=== PATIENT | female | born 1985 | race African-American/Black ===

== ENCOUNTER 2022-08-08 17:46 | Emergency (ER) | payer MEDICAID ==
[~2022-08-08] VITALS: Ht 165.1 cm; Wt 59.0 kg
[2022-08-08 17:47] VITALS: BP 137/74
[2022-08-08 19:54] LABS: BASOPHILS % 1.6 % (0.0-2.0); EOSINOPHILS % 4.1 % (0.0-5.0); HEMATOCRIT. 37.9 % (36.0-48.0); HEMOGLOBIN. 12.6 g/dL (12.0-16.0); LYMPHOCYTES % 37.5 % (20.0-50.0); MEAN CORPUSCULAR HEMOGLOBIN 26.5 pg (28.0-32.0); MEAN CORPUSCULAR VOLUME 79.8 fL (81.0-99.0); MEAN PLATELET VOLUME 8.1 fl (7.4-10.4); MONOCYTES % 11.7 % (2.0-8.0); NEUTROPHILS % 45.1 % (40.0-76.0); PLATELET 416 x1000/uL (130-400); RED BLOOD CELL COUNT 4.74 mill/uL (4.2-5.4); RED CELL DISTRIBUTION WIDTH 17.1 % (11.6-14.6)
[2022-08-08 20:09] LABS: CHLORIDE 108 mEq/L (98-107)
[2022-08-08 20:18] LABS: B-HCG QUANTITATIVE < 1 mIU/mL (<3)
== END 2022-08-08 21:34 | disposition home or self-care (01) ==
LOC: ER 17:46
DX: N93.8 Other specified abnormal uterine and vaginal bleeding (principal); F41.9 Anxiety disorder, unspecified
CPT/HCPCS: 36415; 80053; 81025; 84702; 85025; 86850; 86900; 86901; 99283; Z7610

== ENCOUNTER 2022-10-27 05:40 | Emergency (ER) | payer MEDICAID ==
[~2022-10-27] VITALS: Ht 167.6 cm; Wt 63.0 kg
[2022-10-27 05:43] VITALS: BP 140/72
== END 2022-10-27 06:05 | disposition home or self-care (01) ==
LOC: ER 05:40
DX: Z00.00 Encounter for general adult medical examination without abnormal findings (principal)
CPT/HCPCS: 99283

== ENCOUNTER 2022-12-30 07:52 | Emergency (ER) | payer MEDICAID ==
[~2022-12-30] VITALS: Ht 167.6 cm; Wt 59.0 kg
[2022-12-30 07:57] VITALS: BP 132/85; PULSE 88; RESP 16; TEMP 98.7; O2SAT 100
== END 2022-12-30 09:54 | disposition home or self-care (01) ==
LOC: ER 07:52
DX: N92.0 Excessive and frequent menstruation with regular cycle (principal)
CPT/HCPCS: 81025; 99283